=== PATIENT | female | born 1970 | race Caucasian/White ===

== ENCOUNTER 2016-06-18 13:00 | Emergency (ER) | payer OTHER ==
[~2016-06-18] VITALS: Ht 165.1 cm; Wt 61.2 kg
[~2016-06-18 13:00] MED LIST: METHADONE H5 MG/5 M2 PO; OMEPRAZOLE20 M2 PO; PREMARIN 1.251.25 MG PO
--- NOTE | 2016-06-18 15:11 | ED GENERAL ADULT ---
History of Present Illness General Chief Complaint: General Adult Stated Complaint: PER PT HEART RACING Source: patient, old records Exam Limitations: no limitations Vital Signs & Intake/Output Vital Signs & Intake/Output Vital Signs Date Time Temp Pulse Resp B/P Pulse O2 O2 Flow FiO2 Ox Delivery Rate 06/18 1627 Room Air 06/18 1536 79 20 117/76 98 Room Air 06/18 1329 98.3 86 18 129/89 95 Room Air Allergies Coded Allergies: Sulfa (Sulfonamide Antibiotics) (Severe, ANAPHYLAXIS 06/27/15) Reconcile Medications Methadone HCl 5 MG/5 ML SOLUTION 90 MG PO DAILY MAINTENCE (Reported) Omeprazole 20 MG CAPSULE. 1 CAP PO DAILY GI (Reported) Triage Note: PT TO ED FOR "RACING HEART, EVERYTHING HURTS, MY TOOTH IS INFECTED AND I HAVE A SINUS INFECTION". PT REPORTING INTERMITTENT "RACING HEART" FOR PAST 24 HOURS AND SEVERE WEAKNESS WELL. STATING "RACING HEART" HAS RESOLVED SINCE ARRIVING TO ED (EKG NSR AT 77) BUT NOW COMPLAINING OF "JITTERS" Triage Nurses Notes Reviewed? yes HPI: Patient presents with complaints of a pressure sensation or temples as well as a burning sensation over her whole body. The symptoms have been there for 2 weeks. Patient states that she injected heroin 2 weeks ago with a first time in few months and approximately 2 hours after injecting abdomen the symptoms started. Today patient states that her heart began to race so the patient comes into the emergency department for evaluation. Patient was looking online and saw that it is possible to have endocarditis so she wants to make sure that she does not have it. Patient states that the burning pain as well as the pressure temples are constant. There are no aggravating or mitigating factors. She rates them as 8 out of 10. Patient denies any blurry vision. There is no nausea or vomiting. Past History Travel History Traveled to [place] past 21 day No Medical History Any Pertinent Medical History? see below for history Neurological: TIA EENT: "ADDICTED TO [facility]" Cardiovascular: PVC'S "LEAKY VALVE" Respiratory: COPD Gastrointestinal: ABD TUMOR GASTRIC BYPASS Hepatic: HEP C Renal: NONE Musculoskeletal: fibromyalgia Psychiatric: depression Endocrine: NONE Blood Disorders: anemia DOMESTIC CLEANER/Reproductive: NONE History of CDIFF: No Surgical History Surgical History: cholecystectomy, hysterectomy, gastric bypass surgery 8 years ago hip DSA for labral tear Psychosocial History What is your primary language [place] Tobacco Use: Current Daily Use Daily Tobacco Use Amount/Type: => 5 Cigarettes daily ETOH Use: occasional use Illicit Drug Use: heroin Family History Hx Contributory? No Review of Systems Review of Systems Constitutional: Reports: see HPI, chills. EENTM: Reports: no symptoms. Respiratory: Reports: no symptoms. Cardiovascular: Reports: see HPI, palpitations. GI: Reports: no symptoms. Genitourinary: Reports: no symptoms. Musculoskeletal: Reports: see HPI. Skin: Reports: no symptoms. Neurological/Psychological: Reports: see HPI. Hematologic/Endocrine: Reports: no symptoms. Immunologic/Allergic: Reports: no symptoms. All Other Systems: Reviewed and Negative Physical Exam Physical Exam General Appearance: well developed/nourished, alert, awake, anxious, moderate distress Head: atraumatic, normal appearance Eyes: Bilateral: PERRL, EOMI. Ears, Nose, Throat: normal pharynx, normal ENT inspection, hearing grossly normal Neck: normal inspection, supple, full range of motion Respiratory: normal breath sounds, chest non-tender, no respiratory distress, lungs clear Cardiovascular: regular rate/rhythm, normal peripheral pulses, NO MURMUR Gastrointestinal: normal bowel sounds, soft, non-tender, no organomegaly Back: normal inspection, normal range of motion Extremities: normal inspection, normal capillary refill, normal range of motion, no edema, NO jANEWAY LESIONS OR SPLINTER HEMORRHAGES Neurologic/Psych: no motor/sensory deficits, awake, alert, oriented x 3, normal gait, normal mood/affect Skin: intact, normal color, warm/dry Lymphatic: no anterior cervical karine Core Measures ACS in differential dx? No CVA/TIA Diagnosis: No Severe Sepsis Present: No Septic Shock Present: No Progress Differential Diagnoses I considered the following diagnoses in my evaluation of the patient: [Anxiety, electrolyte abnormality, endocarditis] Plan of Care: Orders Procedure Date/time Status Add-on Test (ER Only) 06/18 1736 Active BLOOD CULTURE 06/18 151 Active URINE DRUGS OF ABUSE 06/18 1511 Complete URINALYSIS 06/18 1511 Complete THYROID STIMULATING HORMONE 06/18 1511 Complete HUMAN BETA HCG SCREEN 06/18 1511 Complete ETHANOL 06/18 1511 Complete COMPREHENSIVE METABOLIC PANEL 06/18 1511 Complete CBC WITHOUT DIFFERENTIAL 06/18 151 Complete EKG 06/18 1303 Active Laboratory Tests 06/18/16 1533: Urine Opiates Screen > 4000.00 H, Methadone Screen > 735 H, Barbiturate Screen < 60, Ur Phencyclidine Scrn < 6.00, Amphetamines Screen < 100, U Benzodiazepines Scrn < 85, Urine Cocaine Screen < 50, Urine Cannabis Screen > 80.00 H, Urine Color YEL, Urine Clarity CLEAR, Urine pH 7.0, Ur Specific [place] 1.010, Urine Protein NEG, Urine Ketones NEG, Urine Nitrite NEG, Urine Bilirubin NEG, Urine Urobilinogen 0.2, Ur Leukocyte Esterase NEG, Ur Microscopic EXAM NOT REQUIRED, Urine Hemoglobin NEG, Urine Glucose NEG 06/18/16 1530: Anion Gap 10, Estimated GFR > 60, BUN/Creatinine Ratio 16.0, Glucose 94, Calcium 10.0, Total Bilirubin 0.7, AST 29, ALT 33, Alkaline Phosphatase 52, Total Protein 7.2, Albumin 4.3, Globulin 2.9, Albumin/Globulin Ratio 1.5, TSH 8.370 H , Total Beta HCG NEGATIVE, CBC w Diff NO MAN DIFF REQ, RBC 5.21, MCV 78.3 L, MCH 25.0 L, RDW 14.9 H, MPV 8.7, Gran % 54.1, Lymphocytes % 32.3, Monocytes % 7.6, Eosinophils % 5.1 H, Basophils % 0.9, Absolute Granulocytes 5.1, Absolute Lymphocytes 3.0, Absolute Monocytes 0.7 H, Absolute Eosinophils 0.5, Absolute Basophils 0.1, PUBS MCHC 32.0 L, Serum Alcohol < 10.0 Microbiology 06/18 1549 BLOOD: Blood Culture - RECD 06/18 1540 BLOOD: Blood Culture - RECD 06/18 1530 BLOOD: Blood Culture - RECD Initial ED EKG: NSR, no ST T wave changes Prior EKG: unchanged Departure Departure Disposition: HOME OR SELF CARE Condition: Stable Clinical Impression Primary Impression: Acute drug withdrawal syndrome Referrals: BESS ENNIS APRN (PCP/Family) Additional Instructions: FOLLOW UP WITH YOUR REGULAR DOCTOR RETURN NEEDED Departure Forms: Customer Survey General Discharge Information Critical Care Note Critical Care Note Critical Care Time: non-applicable
[2016-06-18 15:36] VITALS: BP 117/76
[2016-06-18 15:43] LABS: ABSOLUTE BASOPHIL COUNT 0.1 /CUMM (0.0-0.2); ABSOLUTE EOSINOPHIL COUNT 0.5 /CUMM (0.0-0.7); ABSOLUTE GRANULOCYTE CT 5.1 /CUMM (1.4-6.5); ABSOLUTE MONOCYTE COUNT 0.7 /CUMM (0.10-0.60); BASOPHIL % 0.9 % (0.0-2.0); EOSINOPHIL % 5.1 % (0-5); GRANULOCYTE % 54.1 % (42.2-75.2); HEMATOCRIT 40.8 % (37-47); MEAN CORPUSCULAR VOLUME 78.3 FL (81.0-99.0); MEAN PLATELET VOLUME 8.7 FL (7.4-10.4); PLATELET COUNT 256 /CUMM (130-400); RBC DISTRIBUTION WIDTH 14.9 % (11.5-14.5); RED BLOOD CELL CT 5.21 /CUMM (4.20-5.40); WHITE BLOOD CELL COUNT 9.4 /CUMM (4.8-10.8)
== END 2016-06-18 17:53 ==
LOC: ERH 13:00
PROVIDERS: Emergency Medicine
DX: F11.23 Opioid dependence with withdrawal (principal); R51 Headache; F10.10 Alcohol abuse, uncomplicated
CPT/HCPCS: 80307; 81003; 87040; 93005; 93010; G0480